=== PATIENT | female | born 1965 | race Caucasian/White ===

== ENCOUNTER → 2017-03-08 | Outpatient (CLI) | payer MEDICAID | END | disposition home or self-care (01) | LOC: CFH 08:24 | PROVIDERS: ATTEND Genetic Counselor, MS | DX: M47.812 Spondylosis without myelopathy or radiculopathy, cervical region (principal); N27.1 Small kidney, bilateral; N28.89 Other specified disorders of kidney and ureter; M48.02 Spinal stenosis, cervical region | CPT/HCPCS: 70551; 72141; 76700 ==

== ENCOUNTER → 2017-04-19 | Outpatient (CLI) | payer MEDICAID | END | disposition home or self-care (01) | LOC: CFH 13:07 | PROVIDERS: ATTEND Genetic Counselor, MS | DX: Z12.31 Encounter for screening mammogram for malignant neoplasm of breast (principal); Z80.3 Family history of malignant neoplasm of breast | CPT/HCPCS: 77063; 77067 ==

== ENCOUNTER → 2017-05-19 | Outpatient (CLI) | payer MEDICAID | LOC: CFH 12:40 | PROVIDERS: ATTEND Genetic Counselor, MS | DX: Z13.820 Encounter for screening for osteoporosis (principal); Z78.0 Asymptomatic menopausal state | CPT/HCPCS: 77080 ==

== ENCOUNTER → 2019-09-18 | Outpatient (CLI) | payer MEDICAID | END | disposition home or self-care (01) | LOC: CFH 09:39 | PROVIDERS: ATTEND Genetic Counselor, MS | DX: R92.1 Mammographic calcification found on diagnostic imaging of breast (principal) | CPT/HCPCS: 76642; 77066; G0279 ==